=== PATIENT | female | born 1940 | race Caucasian/White ===

== ENCOUNTER 2024-11-26 10:07 | Day surgery (SDC) | payer MEDICARE ==
[~2024-11-26] VITALS: Ht 152.4 cm; Wt 59.1 kg
[2024-11-26] VITALS (11 sets, daily range): BP systolic 88–154; BP diastolic 52–87; PULSE 48–68; RESP 13–20; O2SAT 95–100
[~2024-11-26 10:07] MED LIST: AMLO10TA5 PO; LEVO125C5 PO
[2024-11-26] MEDS ORDERED: fentaNYL/PF 50MCG/1 ML 2ML syringe ONE (12:45)
[2024-11-26] MEDS ORDERED: MIDAZolam 1 MG/ML 5ML VIAL ONE (12:46)
== END 2024-11-26 14:10 | disposition home or self-care (01) ==
LOC: GI LAB 10:07
PROVIDERS: ATTEND Internal Medicine Gastroenterology
DX: R93.3 Abnormal findings on diagnostic imaging of other parts of digestive tract (principal); K57.30 Diverticulosis of large intestine without perforation or abscess without bleeding; K64.8 Other hemorrhoids
CPT/HCPCS: 45378; A4620; A6258; G0500; J2250; J3010; J7030; Z7512; 99152; 99153